=== PATIENT | female | born 1975 | race Hispanic/Latino ===

== ENCOUNTER → 2023-01-14 | Outpatient (CLI) | payer OTHER | END | disposition home or self-care (01) | LOC: EDBD → RAH 12:50 | PROVIDERS: ATTEND Internal Medicine Cardiovascular Disease | DX: Z13.6 Encounter for screening for cardiovascular disorders (principal) | CPT/HCPCS: 75571 ==

== ENCOUNTER → 2023-01-22 | Outpatient (CLI) | payer BC | END | disposition home or self-care (01) | LOC: SHCH 14:17 → EDUNIT# 14:30 | PROVIDERS: ATTEND Internal Medicine Cardiovascular Disease | DX: I49.3 Ventricular premature depolarization (principal); R00.2 Palpitations | CPT/HCPCS: 93306 ==